=== PATIENT | male | born 1960 | race Asian ===

== ENCOUNTER 2018-03-18 15:18 | Emergency (ER) | payer SELFPAY ==
[~2018-03-18] VITALS: Ht 180.3 cm; Wt 81.6 kg
[2018-03-18 15:23] VITALS: BP 150/75
[2018-03-18] MEDS ORDERED: LOSARTAN POTASS50 MG ORAL (15:29)
[2018-03-18] MEDS ORDERED: INSULIN (15:29)
--- NOTE | 2018-03-18 15:56 | Emergency Room Report ---
History of Present Illness General Chief Complaint: Pain Source: Patient Present Illness HPI 58-year-old male presents to the emergency department complaining of pain, swelling and moderate tenderness to the bottom of his left foot as well as calf pain and tenderness 2 days. Patient reports he is an insulin-dependent diabetic and has one wound that is currently healing which is on his ankle. Patient states that the swelling and increased temperature palpation is not characteristic for him. Patient states that he just arrived from [facility] which was a 22 hour flight. Denies trauma or fall. Denies shortness of breath, chest pain, palpitations, or dyspnea. Allergies: Coded Allergies: No Known Allergies (Unverified , 03/18/18) Patient History Past Medical History: see triage record, DM Past Surgical History: none Pertinent Family History: none Reviewed Nursing Documentation: PMH: Agreed; PSxH: Agreed Nursing Documentation-PMH Hx Hypertension: Yes Hx Diabetes: Yes Review of Systems All Other Systems: negative except mentioned in HPI Physical Exam Vital Signs Date Time Temp Pulse Resp B/P (MAP) Pulse Ox O2 Delivery O2 Flow Rate FiO2 03/18/18 15:23 98.2 80 19 150/75 97 Room Air 98.2 Sp02 EP Interpretation: reviewed, normal General Appearance: no apparent distress, alert, GCS 15, non-toxic Head: normocephalic, atraumatic ENT: hearing grossly normal, normal voice Neck: full range of motion Respiratory: chest non-tender, lungs clear, normal breath sounds, speaking full sentences Cardiovascular #1: regular rate, rhythm, normal capillary refill Musculoskeletal: back normal, gait/station normal, normal range of motion, swelling - left foot. , increased temperature to palpation noted as well. , tender - TTP to plantar aspect of left foot, posterior calf ttp. Neurologic: alert, oriented x3, responsive, motor strength/tone normal, sensory intact, speech normal, grossly normal Psychiatric: judgement/insight normal Skin: warm/dry, well hydrated, rash - venous stasis dermatitis bilaterally Medical Decision Making PA Attestation Dr. Fabian is my supervising Physician whom patient management has been discussed with. Diagnostic Impression: Primary Impression: Cellulitis of left foot Additional Impression: Venous stasis dermatitis of both lower extremities ER Course 58-year-old male presents to the emergency department complaining of pain, swelling and moderate tenderness to the bottom of his left foot as well as calf pain and tenderness 2 days. Patient reports he is an insulin-dependent diabetic and has one wound that is currently healing which is on his ankle. Patient states that the swelling and increased temperature palpation is not characteristic for him. Patient states that he just arrived from [facility] which was a 22 hour flight. Denies trauma or fall. Denies shortness of breath, chest pain, palpitations, or dyspnea. Ddx considered but are not limited to cellulitis, embedded foreign body, musculoskeletal injury, DVT, claudication. Vital signs: are WNL, pt. is afebrile H&PE are most consistent with cellulitis of the left foot, and skin changes secondary to chronic venous stasis. ORDERS: Bedside Accu-Chek was 66, patient was given some orange juice Lab work consisting of CBC, CMP, PT/PTT were all unremarkable Venous duplex ultrasound of the left lower extremity was negative for DVT. ED INTERVENTIONS: -Tramadol by mouth for pain Wound care provided by construction tech. DISCHARGE: At this time pt. is stable for d/c to home. Will provide printed patient care instructions, and any necessary prescriptions. Care plan and follow up instructions have been discussed with the patient prior to discharge. Labs Test 03/18/18 16:00 White Blood Count 10.7 K/UL (4.8-10.8) Red Blood Count 5.63 M/UL (4.70-6.10) Hemoglobin 16.2 G/DL (14.2-18.0) Hematocrit 48.4 % (42.0-52.0) Mean Corpuscular Volume 86 FL (80-99) Mean Corpuscular Hemoglobin 28.8 PG (27.0-31.0) Mean Corpuscular Hemoglobin Concent 33.6 G/DL (32.0-36.0) Red Cell Distribution Width 10.7 % (11.6-14.8) Platelet Count 248 K/UL (150-450) Mean Platelet Volume 8.0 FL (6.5-10.1) Neutrophils (%) (Auto) 61.7 % (45.0-75.0) Lymphocytes (%) (Auto) 24.9 % (20.0-45.0) Monocytes (%) (Auto) 9.2 % (1.0-10.0) Eosinophils (%) (Auto) 3.3 % (0.0-3.0) Basophils (%) (Auto) 0.8 % (0.0-2.0) Prothrombin Time 9.7 SEC (9.30-11.50) Prothromb Time International Ratio 0.9 (0.9-1.1) Activated Partial Thromboplast Time 26 SEC (23-33) Sodium Level 139 MMOL/L (136-145) Potassium Level 4.1 MMOL/L (3.5-5.1) Chloride Level 104 MMOL/L (98-107) Carbon Dioxide Level 28 MMOL/L (21-32) Anion Gap 7 mmol/L (5-15) Blood Urea Nitrogen 15 mg/dL (7-18) Creatinine 1.0 MG/DL (0.55-1.30) Estimat Glomerular Filtration Rate > 60 mL/min (>60) Glucose Level 77 MG/DL (74-106) Calcium Level 9.0 MG/DL (8.5-10.1) Total Bilirubin 0.4 MG/DL (0.2-1.0) Aspartate Amino Transf (AST/SGOT) 24 U/L (15-37) Alanine Aminotransferase (ALT/SGPT) 44 U/L (12-78) Alkaline Phosphatase 86 U/L (46-116) Total Protein 7.6 G/DL (6.4-8.2) Albumin 3.7 G/DL (3.4-5.0) Globulin 3.9 g/dL Albumin/Globulin Ratio 0.9 (1.0-2.7) Other X-Ray Diagnostic Results Other X-Ray Diagnostic Results : X-Ray ordered: Left foot # of Views/Limited Vs Complete: 3 View Indication: Pain EP Interpretation: Yes PA Xray: Interpretation reviewed, by supervising MD, and agrees with findings. Interpretation: no dislocation, no soft tissue swelling, no fractures, other - no radiopaque fb visualized Impression: No acute disease Electronically Signed by: Sara Green PA-C Last Vital Signs Date Time Temp Pulse Resp B/P (MAP) Pulse Ox O2 Delivery O2 Flow Rate FiO2 03/18/18 15:23 98.2 80 19 150/75 97 Room Air 98.2 Disposition: HOME, SELF-CARE Condition: Stable Scripts Vit E Acetate/Gly/Dimeth/Water (Cetaphil Moisturizing Lotion) 237 Ml Lotion 1 APPLIC TP BID, #237 ML Prov: Sara Green 03/18/18 Bacitracin/Polymyxin B Sulfate (BACITRACIN-POLYMYXIN OINTMENT) 28.35 Gm Oint...g. 1 APPLIC TP BID, #28 GM Prov: Sara Green 03/18/18 Cephalexin* (KEFLEX*) 500 Mg Capsule 500 MG ORAL EVERY 12 HOURS for 7 Days, #14 CAP 0 Refills Prov: Sara Green 03/18/18 Doxycycline Hyclate* (VIBRAMYCIN*) 100 Mg Capsule 100 MG ORAL EVERY 12 HOURS for 7 Days, #14 CAP 0 Refills Prov: Sara Green 03/18/18 Patient Instructions: Cellulitis, [id number], Venous Stasis or Chronic Venous Insufficiency Additional Instructions: Take medications as directed. Follow up with a Primary Care Provider or ED in 48 hours for re-check --Please review list of primary care clinics, if you do not already have a primary care provider Return sooner to ED if new symptoms occur, or current symptoms become worse. - Please note that this Emergency Department Report was dictated using [employer] die fin[employer] technology software, occasionally this can lead to erroneous entry secondary to interpretation by the dictation equipment. Sara Green Mar 18, 2018 15:56
[2018-03-18] MEDS ORDERED: traMADol 50mg tab ORAL ONE (16:00)
[2018-03-18 16:56] LABS: BASOPHILS % (AUTO) 0.8 % (0.0-2.0); EOSINOPHILS % (AUTO) 3.3 % (0.0-3.0); HEMATOCRIT 48.4 % (42.0-52.0); HEMOGLOBIN 16.2 G/DL (14.2-18.0); LYMPHOCYTES % (AUTO) 24.9 % (20.0-45.0); MEAN CORPUSCULAR VOLUME 86 FL (80-99); MONOCYTES % (AUTO) 9.2 % (1.0-10.0); NEUTROPHILS % (AUTO) 61.7 % (45.0-75.0); PLATELET COUNT 248 K/UL (150-450); RED BLOOD COUNT 5.63 M/UL (4.70-6.10); RED CELL DISTRIBUTION WIDTH 10.7 % (11.6-14.8); WHITE BLOOD COUNT 10.7 K/UL (4.8-10.8)
[2018-03-18 16:57] LABS: ANION GAP 7 mmol/L (5-15); BLOOD UREA NITROGEN 15 mg/dL (7-18); CARBON DIOXIDE 28 MMOL/L (21-32); CHLORIDE 104 MMOL/L (98-107); POTASSIUM 4.1 MMOL/L (3.5-5.1); SODIUM 139 MMOL/L (136-145)
[2018-03-18 16:58] LABS: INR 0.9 (0.9-1.1)
[2018-03-18 17:01] LABS: ALANINE AMINOTRANSFERASE 44 U/L (12-78); ALBUMIN 3.7 G/DL (3.4-5.0); ALBUMIN/GLOBULIN RATIO 0.9 (1.0-2.7); ALKALINE PHOSPHATASE 86 U/L (46-116); ASPARTATE AMINO TRANSFERASE 24 U/L (15-37); BILIRUBIN,TOTAL 0.4 MG/DL (0.2-1.0)
[2018-03-18] MEDS ORDERED: CEPHALEXIN500 MG ORAL (18:04)
[2018-03-18] MEDS ORDERED: BACITRACIN-P28.35 GM TP (18:04)
[2018-03-18] MEDS ORDERED: [UNRECOGNIZED DRUG - OTHER] TP (18:04)
[2018-03-18] MEDS ORDERED: VIBRAMYCIN100 MG ORAL (18:04)
[2018-03-18 18:25] VITALS: BP 145/70
[2018-03-18 18:38] VITALS: BP 145/70
--- NOTE | 2018-03-19 14:38 | Diagnostic Imaging Report ---
Indication: Foot pain Technique: 3 views left foot Comparison: none Findings: No acute fractures. No dislocations. The joint spaces are preserved. There are extensive soft tissue endovascular calcifications. Impression: No acute bony trauma
== END 2018-03-18 18:40 | disposition home or self-care (01) ==
LOC: EMR 15:59
DX: L03.116 Cellulitis of left lower limb (principal); I87.2 Venous insufficiency (chronic) (peripheral); E11.9 Type 2 diabetes mellitus without complications; I10 Essential (primary) hypertension
CPT/HCPCS: 36415; 80053; 82962; 85025; 85610; 85730; 93971; 99284